=== PATIENT | female | born 1980 | race Caucasian/White ===

== ENCOUNTER 2019-04-06 17:18 | Emergency (ER) | payer MEDICAID ==
[~2019-04-06] VITALS: Ht 157.5 cm; Wt 100.2 kg
[2019-04-06 17:32] VITALS: BP 127/82
--- NOTE | 2019-04-06 17:36 | NUR ---
PT TO BED 4 WITH STEADY GAIT
--- NOTE | 2019-04-06 17:40 | NUR ---
C/O HEAD PAIN POST BOX FALLING FROM WORK AND HITTING PTS HEAD YESTERDAY DENIES LOC.PT AWAKE , ALERT , AMBULATORY WITH STEADY GAIT. PT IS [place]ALLIS[place] SPEAKING
--- NOTE | 2019-04-06 18:15 | NUR ---
ANGUS ZAVALETA AT BEDSIDE WITH EMT COTY EVALUATING THE PT.
[2019-04-06] MEDS: KETOROLAC 30 MG/ML VIAL IM ONE (18:31)
[2019-04-06 19:09] VITALS: BP 125/80
--- NOTE | 2019-04-06 19:09 | NUR ---
Patient discharged with v/s stable. Written and verbal after care instructions given and explained regarding contusion. Patient alert, oriented and verbalized understanding of instructions. Ambulatory with steady gait. All questions addressed prior to discharge. ID band removed. Patient advised to follow up with PMD. Rx of ibuprofen and acetaminophen given. Patient educated on indication of medication including possible reaction and side effects. Opportunity to ask questions provided and answered.
== END 2019-04-06 19:09 | disposition home or self-care (01) ==
LOC: MED 17:18
DX: S00.03XA Contusion of scalp, initial encounter (principal); S39.012A Strain of muscle, fascia and tendon of lower back, initial encounter; W20.8XXA Other cause of strike by thrown, projected or falling object, initial encounter; Y93.89 Activity, other specified; Y92.89 Other specified places as the place of occurrence of the external cause; Y99.0 Civilian activity done for income or pay
CPT/HCPCS: 96372; 99283; J1885

== ENCOUNTER 2021-05-21 14:29 | Emergency (ER) | payer MEDICAID ==
[~2021-05-21] VITALS: Ht 142.2 cm; Wt 76.2 kg
[2021-05-21 14:34] VITALS: BP 126/81
--- NOTE | 2021-05-21 15:08 | NUR ---
MIRZA GRECO AT PATIENT BEDSIDE
--- NOTE | 2021-05-21 15:11 | NUR ---
41 Y/O FEMALE BIB SELF DUE TO PAINFUL MASS NEAR THE NOSE. PAIN IS 8/10 RADIATING UP TO TOP OF HEAD X3DAYS. SHE HAS NOT HAD FEVER/CHILLS,N/V. PMH:DENIES NKA
--- NOTE | 2021-05-21 15:14 | NUR ---
I&D SET UP AT BED SIDE, PA NOTIFIED.
[2021-05-21] MEDS: IBUPROFEN 600 MG TAB PO ONE (15:15)
[2021-05-21] MEDS: LIDOCAINE MPF 1% 10 MG/ML VIAL INJ ONE (15:16)
[2021-05-21] MEDS ORDERED: CEPH-588 PO (16:19)
[2021-05-21] MEDS ORDERED: IBUP-2213 PO (16:19)
[2021-05-21] MEDS ORDERED: ERYT5OIN51 OP (16:19)
[2021-05-21] MEDS ORDERED: SULF-58 PO (16:19)
[2021-05-21 16:39] VITALS: BP 126/81
--- NOTE | 2021-05-21 16:41 | NUR ---
Patient discharged with v/s stable. Written and verbal after care instructions given and explained. Patient alert, oriented and verbalized understanding of instructions. Ambulatory with steady gait. All questions addressed prior to discharge. ID band removed. Patient advised to follow up with PMD. Rx of CEPHALEXIN, ERYTHROMYCIN, IBUPROFEN, SULFAMETHOXAZOLE WERE given. Patient educated on indication of medication including possible reaction and side effects. Opportunity to ask questions provided and answered.
== END 2021-05-21 16:41 | disposition home or self-care (01) ==
LOC: MED 14:29
DX: K13.0 Diseases of lips (principal); H00.014 Hordeolum externum left upper eyelid; Z79.899 Other long term (current) drug therapy
CPT/HCPCS: 10060; 99284; J2001

== ENCOUNTER 2021-05-23 12:05 | Emergency (ER) | payer MEDICAID ==
[~2021-05-23] VITALS: Ht 157.5 cm; Wt 76.2 kg
[~2021-05-23 12:05] MED LIST: CEPH-588 PO; ERYT5OIN51 OP; IBUP-2213 PO; SULF-58 PO
[2021-05-23 12:26] VITALS: BP 135/72
--- NOTE | 2021-05-23 12:50 | NUR ---
in room assessing pt at this time
--- NOTE | 2021-05-23 13:01 | NUR ---
41 y/o female bib self with daughter, c/o upper lip pain due to abscess that appeared 6 days ago. pt states she was seen by md and had site drained, site has continued to drain since then and pain has not improved. site appears serosanguineous on left upper lip. pmh: denies nka med: antibiotics (unable to remember names)
[2021-05-23 13:22] VITALS: BP 133/65
--- NOTE | 2021-05-23 14:05 | NUR ---
no nursing care rendered Patient discharged with v/s stable. Written and verbal after care instructions given and explained. Patient alert, oriented and verbalized understanding of instructions. Ambulatory with steady gait. All questions addressed prior to discharge. ID band removed. Patient advised to follow up with PMD. No Rx given. Patient educated on indication of medication including possible reaction and side effects. Opportunity to ask questions provided and answered.
== END 2021-05-23 13:22 | disposition home or self-care (01) ==
LOC: MED 12:05
DX: L02.01 Cutaneous abscess of face (principal); Z79.899 Other long term (current) drug therapy
CPT/HCPCS: 99281